=== PATIENT | female | born 1985 | race Caucasian/White ===

== ENCOUNTER 2017-06-10 02:45 | Emergency (ER) | payer OTHER ==
[~2017-06-10] VITALS: Ht 162.6 cm; Wt 59.1 kg
[~2017-06-10 02:45] MED LIST: DIFL150T PO; Z.0.NO CURRENT MEDS; ZITH250T PO
[2017-06-10 02:54] VITALS: BP 138/103; PULSE 110; RESP 20; TEMP 98.3; O2SAT 98
--- NOTE | 2017-06-10 03:22 | PD ---
HPI Chief Complaint: Psychiatric Symptoms Time Seen by Provider: 03:10 Travel History International Travel<30 days: No Contact w/Intl Traveler<30days: No Traveled to known affect area: No History of Present Illness HPI This patient was examined in the presence of a female nurse at all times. 32- year-old female presents under [place] act initiated by the Police Department. According to her paperwork the patient tiredness scar from around her neck in a suicide attempt tonight. The patient reports that her girlfriend broke up with her 3 months ago. She has been feeling depressed for several months but tonight she was feeling suicidal. She texted a friend in regards to this and the friend contacted police. The patient endorses a large amount of alcohol use tonight. She denies any illicit drug use. She denies any auditory or visual hallucinations. She has no medical complaints at this time. [facility] Past Medical History Anxiety: Yes Psychiatric: Yes Tetanus Vaccination: < 5 Years Influenza Vaccination: Yes ?: Not LMP: 06/06/17started Past Surgical History Surgical History: No Previous Surgery Social History Alcohol Use: Yes (tonight liquor) Tobacco Use: Yes (black and mild) Substance Use: No Allergies-Medications (Allergen,Severity, Reaction): Coded Allergies: No Known Allergies (Verified Allergy, Mild, 09/26/06) Reported Meds & Prescriptions Reported Meds & Active Scripts Active Review of Systems Except as stated in HPI: all other systems reviewed are Neg Physical Exam Narrative GENERAL: Well-developed well-nourished female who appears anxious and tearful. SKIN: Warm and dry. HEAD: Atraumatic. Normocephalic. EYES: Pupils equal and round. No scleral icterus. No injection or drainage. ENT: No nasal bleeding or discharge. Mucous membranes pink and moist. NECK: Trachea midline. No JVD. CARDIOVASCULAR: Regular rate and rhythm. No murmur appreciated. RESPIRATORY: No accessory muscle use. Clear to auscultation. Breath sounds equal bilaterally. GASTROINTESTINAL: Abdomen soft, non-tender, nondistended. Hepatic and splenic margins not palpable. MUSCULOSKELETAL: No obvious deformities. No clubbing. No cyanosis. No edema. NEUROLOGICAL: Awake and alert. No obvious cranial nerve deficits. Motor grossly within normal limits. Mildly slurred speech. PSYCHIATRIC: Depressed, anxious, tearful. Data Data Last Documented VS Vital Signs Date Time Temp Pulse Resp B/P (MAP) Pulse Ox O2 Delivery O2 Flow Rate FiO2 06/10/17 02:54 98.3 110 20 138/103 (115) 98 Orders Orders Complete Blood Count With Diff (06/10/17 03:08) Comprehensive Metabolic Panel (06/10/17 03:08) Ed Urine Pregnancytest Poc (06/10/17 03:08) Psych Screen (06/10/17 03:08) Drug Screen, Random Urine (06/10/17 03:08) Alcohol (Ethanol) (06/10/17 03:08) Salicylates (Aspirin) (06/10/17 03:08) Tylenol (Acetaminophen) (06/10/17 03:08) Potassium Chloride (Kcl) (06/10/17 05:00) Labs Laboratory Tests Test 06/10/17 03:25 06/10/17 03:31 White Blood Count 7.0 TH/MM3 Red Blood Count 4.86 MIL/MM3 Hemoglobin 16.8 GM/DL Hematocrit 47.8 % Mean Corpuscular Volume 98.2 FL Mean Corpuscular Hemoglobin 34.5 PG Mean Corpuscular Hemoglobin Concent 35.1 % Red Cell Distribution Width 12.9 % Platelet Count 313 TH/MM3 Mean Platelet Volume 9.1 FL Neutrophils (%) (Auto) 63.1 % Lymphocytes (%) (Auto) 30.0 % Monocytes (%) (Auto) 5.5 % Eosinophils (%) (Auto) 0.3 % Basophils (%) (Auto) 1.1 % Neutrophils # (Auto) 4.4 TH/MM3 Lymphocytes # (Auto) 2.1 TH/MM3 Monocytes # (Auto) 0.4 TH/MM3 Eosinophils # (Auto) 0.0 TH/MM3 Basophils # (Auto) 0.1 TH/MM3 CBC Comment DIFF FINAL Differential Comment Blood Urea Nitrogen 2 MG/DL Creatinine 0.63 MG/DL Random Glucose 96 MG/DL Total Protein 8.6 GM/DL Albumin 4.6 GM/DL Calcium Level 9.0 MG/DL Alkaline Phosphatase 59 U/L Aspartate Amino Transf (AST/SGOT) 15 U/L Alanine Aminotransferase (ALT/SGPT) 15 U/L Total Bilirubin 1.3 MG/DL Sodium Level 142 MEQ/L Potassium Level 3.2 MEQ/L Chloride Level 108 MEQ/L Carbon Dioxide Level 21.3 MEQ/L Anion Gap 13 MEQ/L Estimat Glomerular Filtration Rate 110 ML/MIN Salicylates Level 3.7 MG/DL Acetaminophen Level LESS THAN 2.0 MCG/ML Ethyl Alcohol Level 229 MG/DL Urine Opiates Screen NEG Urine Barbiturates Screen NEG Urine Amphetamines Screen NEG Urine Benzodiazepines Screen NEG Urine Cocaine Screen NEG Urine Cannabinoids Screen NEG MDM Medical Decision Making Medical Screen Exam Complete: Yes Emergency Medical Condition: Yes Medical Record Reviewed: Yes Differential Diagnosis Adjustment reaction, substance induced mood disorder, depressive disorder not otherwise specified Narrative Course 32-year-old female presents under [place] act for psychiatric evaluation. Mental health screening discussed with the patient. Psychiatric screen ordered. Potassium is 3.2. The patient was given oral potassium chloride. Alcohol level is 229. The patient is medically cleared for psychiatric disposition. Diagnosis Primary Impression: Suicidal ideation Additional Impression: Alcohol intoxication Freddie Gillespie Jun 10, 2017 03:22
[2017-06-10 03:54] LABS: AUTOMATED NEUTROPHIL # 4.4 TH/MM3 (1.8-7.7); BASOPHIL # 0.1 TH/MM3 (0-0.2); BASOPHIL % 1.1 % (0.0-2.0); EOSINOPHIL % 0.3 % (0.0-4.0); HEMATOCRIT 47.8 % (35.0-46.0); HEMOGLOBIN 16.8 GM/DL (11.6-15.3); LYMPHOCYTE # 2.1 TH/MM3 (1.0-4.8); MEAN CELL VOLUME 98.2 FL (80.0-100.0); MEAN CORPUSCULAR HEMOGLOBIN 34.5 PG (27.0-34.0); MEAN CORPUSCULAR HGB CONC 35.1 % (32.0-36.0); MEAN PLATELET VOLUME 9.1 FL (7.0-11.0); MONO % 5.5 % (0.0-8.0); MONOCYTE # 0.4 TH/MM3 (0-0.9); NEUT % 63.1 % (16.0-70.0); PLATELET COUNT 313 TH/MM3 (150-450); RED BLOOD COUNT 4.86 MIL/MM3 (4.00-5.30); RED CELL DISTRIBUTION WIDTH 12.9 % (11.6-17.2)
[2017-06-10 04:35] LABS: ALBUMIN 4.6 GM/DL (3.4-5.0); AST (GOT) 15 U/L (15-37); BICARBONATE 21.3 MEQ/L (21.0-32.0); BLOOD UREA NITROGEN 2 MG/DL (7-18); CHLORIDE 108 MEQ/L (98-107); CREATININE 0.63 MG/DL (0.50-1.00); GLOMERULAR FILTRATION RATE 110 ML/MIN (>89); GLUCOSE,RANDOM 96 MG/DL (74-106); SODIUM (NA) 142 MEQ/L (136-145)
[2017-06-10 04:39] LABS: ALKALINE PHOSPHATASE 59 U/L (45-117); ALT (GPT) 15 U/L (10-53); TOTAL BILIRUBIN ADULT 1.3 MG/DL (0.2-1.0); TOTAL PROTEIN 8.6 GM/DL (6.4-8.2)
[2017-06-10 04:53] LABS: ACETAMINOPHEN LESS THAN 2.0 MCG/ML (10.0-30.0)
[2017-06-10] MEDS ORDERED: POTASSIUM CHLORIDE 20 MEQ CONTROLLED RELEASE TAB PO ONE (05:00)
[2017-06-10 05:20] VITALS: BP 107/63; RESP 18
[2017-06-10 11:06] VITALS: BP 133/87; PULSE 112; RESP 18
--- NOTE | 2017-06-10 12:21 | PD ---
History of Present Illness Chief Complaint: Psychiatric Symptoms Time Seen by Provider: 12:00 Travel History International Travel<30 Days: No Contact w/Intl Traveler<30days: No Known affected area: No Legal Status Legal Status: Med[place] Act Med[place] Act Signed By: Sandra Medina Act Comment: 06/10/2017 0159 AM DEP. Lance [facility] #[id number] [id number] History of Present Illness: 32-year-old female reportedly tied something around her neck last night and a suicide attempt. Patient was markedly intoxicated last night and she is no longer intoxicated. She denies any suicidal or homicidal ideation, plan or intent at this time. She has no psychotic symptoms and her cognition is intact. She is verbally rosas for safety and she is competent to do so. She would like to go home, where she resides with her ex-girlfriend. PFSH Past Medical History Anxiety: Yes Psychiatric: Yes Tetanus Vaccination: < 5 Years Influenza Vaccination: Yes ?: Not LMP: 06/06/17started Past Surgical History Surgical History: No Previous Surgery Psychiatric History Psychiatric History Hx Psychiatric Treatment: Patient with a hx of anxiety. History of Inpatient Treatment: No Guns or firearms in home: No Social History Hx Alcohol Use: Yes (tonight liquor) Hx Tobacco Use: Yes (black and mild) Hx Substance Use: No Substance Use Type: Alcohol Hx of Substance Use Treatment: No Allergies-Medications (Allergen,Severity, Reaction): Coded Allergies: No Known Allergies (Verified Allergy, Mild, 09/26/06) Reported Meds & Prescriptions Reported Meds & Active Scripts Active Review of Systems Psychiatric: COMPLAINS OF: Depression Except as stated in HPI: all other systems reviewed are Neg Mental Status Examination Appearance: Appropriate Consciousness: Alert Orientation: x4 Motor Activity: Normal gait Speech: Unremarkable Language: Adequate Fund of Knowledge: Adequate Attention and Concentration: Adequate Memory: Unremarkable Mood: Anxious Affect: Blunt Thought Process & Associations: Intact Thought Content: Appropriate Hallucination Type: None Delusion Type: None Suicidal Ideation: No Suicidal Plan: No Suicidal Intention: No Homicidal Ideation: No Homicidal Plan: No Homicidal Intention: No Insight: Adequate Judgment: Adequate [facility] Medical Decision Making Medical Record Reviewed: Yes Assessment/Plan Patient interviewed at bedside. Medical record reviewed. Case discussed with nurse Carmen. Patient no longer meets Med[place] act criteria. She does not meet criteria for involuntary psychiatric hospitalization. She is verbally rosas for safety and she is competent to do so. She would like to go home and see her therapist on an outpatient basis. Least restrictive alternative applies. Orders Orders Complete Blood Count With Diff (06/10/17 03:08) Comprehensive Metabolic Panel (06/10/17 03:08) Ed Urine Pregnancytest Poc (06/10/17 03:08) Psych Screen (06/10/17 03:08) Drug Screen, Random Urine (06/10/17 03:08) Alcohol (Ethanol) (06/10/17 03:08) Salicylates (Aspirin) (06/10/17 03:08) Tylenol (Acetaminophen) (06/10/17 03:08) Potassium Chloride (Kcl) (06/10/17 05:00) Diet Regular Basic (06/10/17 Breakfast) Diet Regular Basic (06/10/17 Lunch) Results Vital Signs Date Time Temp Pulse Resp B/P (MAP) Pulse Ox O2 Delivery O2 Flow Rate FiO2 06/10/17 11:06 112 18 133/87 (102) 06/10/17 05:20 18 107/63 (78) 06/10/17 02:54 98.3 110 20 138/103 (115) 98 Laboratory Tests Test 06/10/17 03:25 06/10/17 03:31 White Blood Count 7.0 Red Blood Count 4.86 Hemoglobin 16.8 Hematocrit 47.8 Mean Corpuscular Volume 98.2 Mean Corpuscular Hemoglobin 34.5 Mean Corpuscular Hemoglobin Concent 35.1 Red Cell Distribution Width 12.9 Platelet Count 313 Mean Platelet Volume 9.1 Neutrophils (%) (Auto) 63.1 Lymphocytes (%) (Auto) 30.0 Monocytes (%) (Auto) 5.5 Eosinophils (%) (Auto) 0.3 Basophils (%) (Auto) 1.1 Neutrophils # (Auto) 4.4 Lymphocytes # (Auto) 2.1 Monocytes # (Auto) 0.4 Eosinophils # (Auto) 0.0 Basophils # (Auto) 0.1 CBC Comment DIFF FINAL Differential Comment Blood Urea Nitrogen 2 Creatinine 0.63 Random Glucose 96 Total Protein 8.6 Albumin 4.6 Calcium Level 9.0 Alkaline Phosphatase 59 Aspartate Amino Transf (AST/SGOT) 15 Alanine Aminotransferase (ALT/SGPT) 15 Total Bilirubin 1.3 Sodium Level 142 Potassium Level 3.2 Chloride Level 108 Carbon Dioxide Level 21.3 Anion Gap 13 Estimat Glomerular Filtration Rate 110 Salicylates Level 3.7 Acetaminophen Level LESS THAN 2.0 Ethyl Alcohol Level 229 Urine Opiates Screen NEG Urine Barbiturates Screen NEG Urine Amphetamines Screen NEG Urine Benzodiazepines Screen NEG Urine Cocaine Screen NEG Urine Cannabinoids Screen NEG Diagnosis Primary Impression: Adjustment disorder with mixed disturbance of emotions and conduct Additional Impression: Alcohol abuse Problem Qualifiers Nolan Hernandez MD Jun 10, 2017 12:21
--- NOTE | 2017-06-10 12:38 | PD ---
Physical Exam Date Seen by Provider: Jun 10, 2017 Narrative 32-year-old female presents to emergency department with suicide ideations. Patient was cleared by provider to see psychiatry. Dr. Hernandez evaluated patient and did not believe this patient met criteria for inpatient admission. At this time patient denies suicidal or homicidal ideations. Patient be discharged for outpatient follow-up. Data Data Last Documented VS Vital Signs Date Time Temp Pulse Resp B/P (MAP) Pulse Ox O2 Delivery O2 Flow Rate FiO2 06/10/17 13:43 06/10/17 11:06 112 18 06/10/17 02:54 98.3 98 Orders Orders Complete Blood Count With Diff (06/10/17 03:08) Comprehensive Metabolic Panel (06/10/17 03:08) Ed Urine Pregnancytest Poc (06/10/17 03:08) Psych Screen (06/10/17 03:08) Drug Screen, Random Urine (06/10/17 03:08) Alcohol (Ethanol) (06/10/17 03:08) Salicylates (Aspirin) (06/10/17 03:08) Tylenol (Acetaminophen) (06/10/17 03:08) Potassium Chloride (Kcl) (06/10/17 05:00) Diet Regular Basic (06/10/17 Breakfast) Ed Discharge Order (06/10/17 12:42) Labs Laboratory Tests Test 06/10/17 03:25 06/10/17 03:31 White Blood Count 7.0 TH/MM3 Red Blood Count 4.86 MIL/MM3 Hemoglobin 16.8 GM/DL Hematocrit 47.8 % Mean Corpuscular Volume 98.2 FL Mean Corpuscular Hemoglobin 34.5 PG Mean Corpuscular Hemoglobin Concent 35.1 % Red Cell Distribution Width 12.9 % Platelet Count 313 TH/MM3 Mean Platelet Volume 9.1 FL Neutrophils (%) (Auto) 63.1 % Lymphocytes (%) (Auto) 30.0 % Monocytes (%) (Auto) 5.5 % Eosinophils (%) (Auto) 0.3 % Basophils (%) (Auto) 1.1 % Neutrophils # (Auto) 4.4 TH/MM3 Lymphocytes # (Auto) 2.1 TH/MM3 Monocytes # (Auto) 0.4 TH/MM3 Eosinophils # (Auto) 0.0 TH/MM3 Basophils # (Auto) 0.1 TH/MM3 CBC Comment DIFF FINAL Differential Comment Blood Urea Nitrogen 2 MG/DL Creatinine 0.63 MG/DL Random Glucose 96 MG/DL Total Protein 8.6 GM/DL Albumin 4.6 GM/DL Calcium Level 9.0 MG/DL Alkaline Phosphatase 59 U/L Aspartate Amino Transf (AST/SGOT) 15 U/L Alanine Aminotransferase (ALT/SGPT) 15 U/L Total Bilirubin 1.3 MG/DL Sodium Level 142 MEQ/L Potassium Level 3.2 MEQ/L Chloride Level 108 MEQ/L Carbon Dioxide Level 21.3 MEQ/L Anion Gap 13 MEQ/L Estimat Glomerular Filtration Rate 110 ML/MIN Salicylates Level 3.7 MG/DL Acetaminophen Level LESS THAN 2.0 MCG/ML Ethyl Alcohol Level 229 MG/DL Urine Opiates Screen NEG Urine Barbiturates Screen NEG Urine Amphetamines Screen NEG Urine Benzodiazepines Screen NEG Urine Cocaine Screen NEG Urine Cannabinoids Screen NEG MDM Supervised Visit with HUMBERTO: Yes Diagnosis Primary Impression: Adjustment disorder with mixed disturbance of emotions and conduct Additional Impression: Alcohol abuse JusticeKorin Jun 10, 2017 12:37
== END 2017-06-10 13:45 | disposition home or self-care (01) ==
LOC: NEPD 02:45 → NEPJ 13:45
DX: F43.25 Adjustment disorder with mixed disturbance of emotions and conduct (principal); F10.10 Alcohol abuse, uncomplicated; R45.851 Suicidal ideations; F41.9 Anxiety disorder, unspecified; Z72.0 Tobacco use
CPT/HCPCS: 80053; 80307; 84703; 85025; 99285